=== PATIENT | female | born 1960 | race Caucasian/White ===

== ENCOUNTER → 2019-03-02 | Day surgery (SDC) | payer OTHER ==
[~2019-03-02] MED LIST: AMLO1CAP10 PO; IV RINGERS,LACTATED 1000ML 1,000 ML IV SCH; PANT20TA2 PO; PROPOFOL 20 ML IV ONE; TRIA1TAB3 PO
[2019-03-02 10:07] VITALS: BP 145/71
--- NOTE | 2019-03-03 15:06 | PATHOLOGY ---
[facility] Accession Number: [id number] . 01 Material submitted: . PART A: small bowel - SMALL BOWEL BIOPSY PART B: stomach - GASTRIC ANTRUM BIOPSY PART C: esophagus - DISTAL ESOPHAGUS BIOPSY. Modifiers: distal PART D: stomach - FUNDUS POLYP BIOPSY. Modifiers: fundus . 01 Clinical history: . Abdominal pain . 02 Diagnosis: A. Small bowel biopsies: - No significant pathologic abnormalities. . B. Gastric biopsies, antrum: - Very mild chronic gastritis. . C. Esophageal biopsies, distal esophagus: - Segments of mildly hyperplastic squamous esophageal mucosa and gastric mucosa showing chronic inflammation and focal pancreatic metaplasia. . D. Gastric biopsy, fundic polyp: - Fundic gland polyp. (JPM:[facility] 03/03/2019) [facility]/03/03/2019 . 02 Comment: Sections of the small bowel biopsy reveal segments of duodenal and small intestine mucosa. Where best oriented, the mucosal villi show no sprue-like changes or significant inflammatory changes. . Sections of the gastric biopsy reveal gastric antral and antral/body transition mucosa showing congestion and very mild chronic inflammation. A properly controlled immunoperoxidase stain for Helicobacter is negative for Helicobacter organisms. . Sections of the distal esophageal biopsy reveal segments of tangentially oriented, mildly hyperplastic squamous esophageal mucosa and gastric mucosa showing mild to focal moderate chronic inflammation and focal pancreatic metaplasia. The findings are consistent with reflux esophagitis. There is no evidence of Mao's change, dysplasia, or malignancy. . Sections of the gastric polyp biopsy reveal a fundic gland polyp. There are no adenomatous changes or evidence of malignancy. (JPM:[facility] 03/03/2019) . Special stain performed: Immunoperoxidase for Helicobacter on B1. . 02 Electronically signed: . Ramesh Bojorquez MD, Pathologist NPI- [id number] . 01 Gross description: . A. Received in formalin labeled "Cross, Karis, small bowel BX," are 6 segments of hooks soft tissue measuring 1.5 x 1.4 x 0.2 cm in aggregate dimensions and ranging from 0.1 to 0.4 cm in maximum dimension. The specimen is submitted entirely in A1. . B. Received in formalin labeled "Cross, Karis, gastric antrum BX," are 2 segments of hooks soft tissue measuring 0.9 x 0.3 x 0.2 cm in aggregate dimensions and ranging from 0.4 to 0.5 cm in maximum dimension. The specimen is submitted entirely in cassette B1. . C. Received in formalin labeled "Cross, Karis, distal esophagus BX," are 5 segments of hooks soft tissue measuring 1.3 x 0.9 x 0.2 cm in aggregate dimensions and ranging from 0.2 to 0.3 cm in maximum dimension. The specimen is submitted entirely in cassette C1. . D. Received in formalin labeled "Cross, Karis, fundus polyp BX," is a single segment of hooks soft tissue measuring 0.3 cm in maximum dimension. The specimen is submitted entirely in cassette D1. ([facility]; 03/02/2019) TOB/TOB . 02 Pathologist provided ICD-10: K29.50, K20.9, K31.7 . 02 CPT . 932631, 761434, 470248, [id number], [id number] Specimen Comment: A courtesy copy of this report has been sent to Specimen Comment: [phone], . Specimen Comment: Report sent to / DR DISLA Performed at: 01 [facility] [address], [place] [id number] MD Romaine Gardiner MD Phone: [phone] Performed at: 02 [facility] [address] [place], [place] [id number] MD Ramesh Bojorquez MD Phone: [phone]
== END ==
LOC: SURG 08:05
PROVIDERS: ATTEND Internal Medicine Gastroenterology
DX: K31.7 Polyp of stomach and duodenum (principal); K29.50 Unspecified chronic gastritis without bleeding; K21.0 Gastro-esophageal reflux disease with esophagitis; K31.89 Other diseases of stomach and duodenum; I10 Essential (primary) hypertension; E78.5 Hyperlipidemia, unspecified; K64.9 Unspecified hemorrhoids; Z90.49 Acquired absence of other specified parts of digestive tract; Z98.890 Other specified postprocedural states
CPT/HCPCS: 43239; 88305; 88342; J2704